=== PATIENT | male | born 1995 | race Caucasian/White ===

== ENCOUNTER 2019-02-23 23:36 | Emergency (ER) | payer OTHER ==
[2019-02-24] MEDS ORDERED: OXYCODONE-ACETAMINOPHEN 5-325 MG TABLET PO ONE (00:39)
--- NOTE | 2019-02-24 00:40 | ER Document Report ---
ED Medical Screen (RME) - General Chief Complaint: Testicular Pain Stated Complaint: LEFT TESTICLE HURTING Mode of Arrival: Ambulatory Information source: Patient Notes: Otherwise healthy 23-year-old male presents emergency department chief complaint of left testicular pain. Patient reports pain started abruptly after having intercourse. Exam deferred until patient has an alarm. Patient will be medicated for pain and will be sent for ultrasound. I have greeted and performed a rapid initial assessment of this patient. A comprehensive ED assessment and evaluation of the patient, analysis of test results and completion of the medical decision making process will be conducted by additional ED providers. I have specifically instructed the patient or family members with the patient to immediately return to any nursing staff should anything change in the patient's condition or with their chief complaint. - Related Data Allergies/Adverse Reactions: No Known Allergies Allergy (Unverified 02/24/19 00:35) Past Medical History - Social History Chew tobacco use (# tins/day): No Frequency of alcohol use: None Drug Abuse: None Physical Exam - Vital signs Vitals: Temp Pulse Resp BP Pulse Ox 98.2 F 85 18 143/81 H 99 02/24/19 00:35 02/24/19 00:35 02/24/19 00:35 02/24/19 00:35 02/24/19 00:35 Course - Vital Signs Vital signs: Temp Pulse Resp BP Pulse Ox 98.2 F 85 18 143/81 H 99 02/24/19 00:35 02/24/19 00:35 02/24/19 00:35 02/24/19 00:35 02/24/19 00:35
[2019-02-24 01:30] LABS: APPEARANCE,URINE CLEAR; BILIRUBIN,URINE NEGATIVE (NEGATIVE); COLOR,URINE YELLOW; GLUCOSE, URINE NEGATIVE (NEGATIVE); KETONES,URINE NEGATIVE (NEGATIVE); LEUKOCYTE ESTERASE,URINE NEGATIVE (NEGATIVE); NITRITE,URINE NEGATIVE (NEGATIVE); PROTEIN,URINE NEGATIVE (NEGATIVE); URINE SPECIFIC GRAVITY 1.021; UROBILINOGEN,URINE NEGATIVE mg/dL (<2.0)
--- NOTE | 2019-02-24 01:58 | RADIOLOGY REPORT (SQ) ---
EXAM DESCRIPTION: US SCROTUM COMPLETED DATE/TME: 02/24/2019 00:39 CLINICAL HISTORY: 23 years, Male, L testicular pain s/p intercourse COMPARISON: None. TECHNIQUE: Transverse and longitudinal sonographic images of the testes LIMITATIONS: None. FINDINGS: The right testicle measures 4.3 x 3.2 x 2.3 cm, the left 4.2 x 2.9 x 2.1 cm per normal flow to each testicle. Negative for intratesticular mass. The epididymides are unremarkable. Tiny bilateral hydroceles IMPRESSION: Tiny bilateral hydroceles. Remainder unremarkable copyright 2010 [id number]- All Rights Reserved
[2019-02-24] MEDS ORDERED: KETOROLAC TROMETHAMINE 60 MG/2 ML SDV IM ONE (03:23)
--- NOTE | 2019-02-24 03:25 | ER Document Report ---
ED GI/ - General Chief Complaint: Testicular Pain Stated Complaint: LEFT TESTICLE HURTING Time Seen by Provider: 02/24/19 02:44 Mode of Arrival: Ambulatory Notes: Patient is a 23-year-old male that comes emergency department for chief complaint of testicular pain. He states this is on both sides but worse on the left. He states he started feeling this at the end of and after intercourse tonight. He states they were somewhat intense but he denies remembering any specific trauma. He states it feels swollen. He denies nausea or vomiting, rash, discharge, abdominal pain, flank pain. He denies any other complaints. Patient denies any daily medications or past medical history. - Related Data Allergies/Adverse Reactions: No Known Allergies Allergy (Unverified 02/24/19 00:35) Past Medical History - General Information source: Patient - Social History Smoking Status: Never Smoker Chew tobacco use (# tins/day): No Frequency of alcohol use: None Drug Abuse: None Lives with: Family Family History: Reviewed & Not Pertinent Patient has suicidal ideation: No Patient has homicidal ideation: No - Medical History Medical History: Negative Surgical Hx: Negative - Immunizations Immunizations up to date: Yes Hx Diphtheria, Pertussis, Tetanus Vaccination: Yes Review of Systems - Review of Systems Constitutional: No symptoms reported EENT: No symptoms reported Cardiovascular: No symptoms reported Respiratory: No symptoms reported Gastrointestinal: No symptoms reported Genitourinary: See HPI Male Genitourinary: No symptoms reported Musculoskeletal: No symptoms reported Skin: No symptoms reported Hematologic/Lymphatic: No symptoms reported Neurological/Psychological: No symptoms reported Physical Exam - Vital signs Vitals: Temp Pulse Resp BP Pulse Ox 98.2 F 85 18 143/81 H 99 02/24/19 00:35 02/24/19 00:35 02/24/19 00:35 02/24/19 00:35 02/24/19 00:35 - Notes Notes: GENERAL: Alert, interacts well. No acute distress. HEAD: Normocephalic, atraumatic. EYES: Pupils equal, round, and reactive to light. Extraocular movements intact. ENT: Oral mucosa moist, tongue midline. Oropharynx unremarkable. Airway patent. NECK: Full range of motion. Supple. Trachea midline. LUNGS: Clear to auscultation bilaterally, no wheezes, rales, or rhonchi. No respiratory distress. HEART: Regular rate and rhythm. No murmur ABDOMEN: Soft, non-tender. Non-distended. Bowel sounds present in all 4 quadrants. GENITOURINARY: No overt tenderness noted, no swelling, no erythema, normal cremasteric reflexes, no rash over the genitals or groin. Exam performed with Radha CAMPBELL at bedside. EXTREMITIES: Moves all 4 extremities spontaneously. No edema, normal radial and dorsalis pedis pulses bilaterally. No cyanosis. BACK: no cervical, thoracic, lumbar midline tenderness. No saddle anesthesia, normal distal neurovascular exam. Moves all extremities in full range of motion. NEUROLOGICAL: Alert and oriented x3. Normal speech. Cranial nerves II through XII grossly intact. PSYCH: Normal affect, normal mood. SKIN: Warm, dry, normal turgor. No rashes or lesions noted. Course - Re-evaluation Re-evalutation: Patient with very unremarkable exam. Ultrasound showing small hydroceles but no concerning findings including no torsion or mass. Exam does not suggest epididymitis. Urine does not suggest infection. Patient will be treated with anti-inflammatories, recommendations were discussed, discussed follow-up and return precautions. Patient states understanding and agreement. Stable at time of discharge. - Vital Signs Vital signs: Temp Pulse Resp BP Pulse Ox 97.9 F 63 16 133/71 H 97 02/24/19 03:37 02/24/19 03:37 02/24/19 03:37 02/24/19 03:37 02/24/19 03:37 Discharge - Discharge Clinical Impression: Testicular pain Condition: Stable Disposition: HOME, SELF-CARE Additional Instructions: There are small areas of fluid in the scrotum, I suspect this is traumatic, there are no concerning findings, this should resolve with time. Take the prescribed medication, wear supportive underwear for the next several days, symptoms should simply resolve. Resume normal activity as tolerated. Follow-up with primary care. Return for any concerning symptoms including severe worsening pain, severe swelling, developing redness or heat, fever, discharge, or any other concerning symptoms. Prescriptions: Naproxen 500 mg PO BID PRN #14 tablet PRN Reason: Forms: Return to Work
[2019-02-24 03:37] VITALS: BP 133/71
== END 2019-02-24 03:54 | disposition home or self-care (01) ==
LOC: ER 23:36
DX: N50.812 Left testicular pain (principal)
CPT/HCPCS: 99284; 96374; 81001; 76870; 93976; J1885